=== PATIENT | male | born 1995 | race Caucasian/White ===

== ENCOUNTER → 2017-11-20 | Outpatient (CLI) | payer SELFPAY ==
[~2017-11-20] MED LIST: Flomax0.4 MG PO; KETO10 PO; OXYACE5T PO; PROC10 PO; Percocet 5-3251 EACH PO; RXOXYACE PO
== END | disposition home or self-care (01) ==
LOC: LAB EV 15:06 → LAB SHORT 15:06
DX: N12 Tubulo-interstitial nephritis, not specified as acute or chronic (principal)
CPT/HCPCS: 87086

== ENCOUNTER → 2020-05-22 | Outpatient (CLI) | payer SELFPAY ==
[2020-05-24 01:10] LABS: CHLAMYDIA TRACHOMATIS, NAA Negative (Negative)
== END | disposition home or self-care (01) ==
LOC: LAB SHORT 08:47 → LAB EV 08:47
PROVIDERS: Physician Assistant
DX: N52.9 Male erectile dysfunction, unspecified (principal)
CPT/HCPCS: 87491; 87591